=== PATIENT | male | born 1980 | race Caucasian/White ===

== ENCOUNTER 2018-07-09 22:01 | Observation (INO) | payer MEDICAID, SELFPAY ==
[2018-07-09 22:03] VITALS: BP 133/77; PULSE 84; RESP 14; TEMP 36.9; O2SAT 98; BMI 28.1
--- NOTE | 2018-07-09 22:14 | ED.RN ---
brief [facility] preformed in triage. no s/s of neuro deficits. states smile is normal. pt has rhythmic motor movement of left index finger. motor strength equal bilat. no aphagia or slurred speech. all answers and commands appropriate. bharti kinney, rn [id number]
--- NOTE | 2018-07-09 22:23 | CT_ITS ---
STUDY: CTA OF THE BRAIN REASON FOR EXAM: Male, 37 years old. Dizziness, confusion with headache RADIATION DOSAGE (If Supplied By Facility): CTDIvol = ( 30.90 ) mGy, DLP = ( 1479.76 ) mGycm TECHNIQUE: Noncontrast head CT initially performed. CT angiography was performed with a multi-detector CT scanner. Data acquisition was obtained from the skull base through the vertex following intravenous administration of 100 ml of Isovue-370. MIP images were reconstructed from the axial data set. Post-processing of the angiographic images was performed, with multiplanar reformation and 3D reconstruction. Individualized dose optimization techniques were used for this CT. COMPARISON: None. FINDINGS: Normal bilateral petrous carotid arteries. Normal right cavernous carotid artery with a normal supraclinoid bifurcation. Normal left cavernous carotid artery with a normal supraclinoid bifurcation. Normal right A1 segments of the anterior cerebral artery. Normal left A1 segments of the anterior cerebral artery. Normal intact anterior communicating artery (ACOM). Normal bilateral A2 segments of the anterior cerebral arteries. Normal right M1 and M2 segments of the middle cerebral arteries, with a normal M1 bifurcation. Normal left M1 and M2 segments of the middle cerebral arteries, with a normal M1 bifurcation. Normal right posterior communicating artery (PCOM). Normal left posterior communicating artery (PCOM). Normal bilateral vertebral arteries. Normal basilar artery with a normal basilar bifurcation. The visualized bilateral superior cerebellar (SCA) arteries are normal. Normal bilateral P1, P2 and visualized P3 segments of the posterior cerebral arteries. There is no demonstrated aneurysm of the [place]. The ventricular system is normal for age. No masses, mass effects or shift of the midline structures. No acute hemorrhage, obvious infarction or abnormal collection of extra-axial fluid. The visualized paranasal sinuses, orbits and mastoid air unremarkable. CT/CTA Head W/WO Contrast IMPRESSION: 1. Normal [place] without a demonstrated aneurysm or hemodynamically significant stenosis. 2. Normal noncontrasted head CT. Electronically Signed: Blade Kent MD at 0:25 EST , Service support ,
--- NOTE | 2018-07-09 22:23 | EKG12_ITS ---
Test Reason : DIZZINESS, NEURO SX Blood Pressure : / mmHG Vent. Rate : 084 BPM Atrial Rate : 084 BPM P-R Int : 128 ms QRS Dur : 112 ms QT Int : 360 ms P-R-T Axes : 057 078 055 degrees QTc Int : 425 ms Normal sinus rhythm Normal ECG Confirmed by MIKE VERGARA, ELLIS ([id number]), writer editor JESU SCHERER ([id number]) on 07/11/2018 1:53:11 PM Referred By: TONY Confirmed By:ELLIS MCKEON MD
--- NOTE | 2018-07-09 22:23 | CT_ITS ---
STUDY: CTA NECK WITH CONTRAST REASON FOR EXAM: Male, 37 years old. Dizziness, confusion with headache RADIATION DOSAGE (If Supplied By Facility): CTDIvol = ( 30.90 ) mGy, DLP = ( 1476.76 ) mGycm TECHNIQUE: CT angiography with multi-detector data acquisition was performed from the aortic arch to the skull base following intravenous administration of 100ML ml of Isovue 370 contrast. MIP images were reconstructed from the axial data set. Post-processing of the angiographic images was performed, with multiplanar reformation and 3D reconstruction. Individualized dose optimization techniques were used for this CT. COMPARISON: None. FINDINGS: AORTIC ARCH: There is a bovine origin of the great vessels arising from the aortic arch with a common origin of the brachiocephalic and left common carotid artery. Normal origin of the left subclavian artery. Normal origins of the brachiocephalic, left common carotid, and left subclavian arteries. RIGHT CAROTID ARTERIES: Normal right common carotid artery (CCA). There is mild atherosclerotic plaque formation with minimal narrowing of the right carotid bulb. Normal origin of the right internal carotid (ICA) artery without a hemodynamically significant stenosis. Normal visualized cervical portion of the right internal carotid artery. Normal origin of the right external carotid artery (ECA). LEFT CAROTID ARTERIES: Normal left common carotid artery (CCA). There is minimal atherosclerotic plaque formation without complete narrowing of the left carotid bulb. Normal origin of the left internal carotid (ICA) artery without a hemodynamically significant stenosis. There is atherosclerotic tortuous elongation of the cervical portion of the left internal carotid artery. Normal origin of the left external carotid artery (ECA). VERTEBRAL ARTERIES: Normal bilateral vertebral arteries. CT/CTA Neck W/WO Contrast IMPRESSION: 1. No hemodynamically significant carotid stenosis. No carotid dissection or aneurysm. Bilateral vertebral arteries are patent. 2. Minimal bilateral carotid bulb atherosclerosis. Electronically Signed: Blade Kent MD at 0:22 EST , Service support ,
[2018-07-09 22:50] VITALS: BP 159/98; PULSE 87; RESP 10; O2SAT 97
[2018-07-09 22:58] LABS: Absolute Lymphocyte Count 1.04 X10^3/ul (0.83-4.51); Basophil# 0.04 X10^3/uL; Basophil% 0.4 % (0-1); Eosinophil# 0.06 X10^3/uL; Eosinophils% 0.6 % (0-5); Hemoglobin 16.4 g/dl (13.0-16.5); Lymphocyte # 1.04 X10^3/ul (4.0); Lymphocyte % 10.8 % (19-41); Mean Corp Hgb Conc 35.7 g/gl (32-36); Mean Corpuscular Hgb 29.7 pg (27.0-32.0); Mean Corpuscular Volume 83.2 fL (80-94); Mean Platelet Vol. 9.5 fl (6.2-12.0); Monocyte# 0.46 X10^3/uL; Monocyte% 4.8 % (0-10); Neutrophil % 83.3 % (47-70); POSITIVE COUNT NO; POSITIVE DIFFERENTIAL NO; POSITIVE MORPHOLOGY NO; Platelet Count 245 K/mm3 (150-450); RBC Distribution Width CV 12.2 % (11.6-14.6); RBC Distribution Width SD 37.1 fl (35.1-43.9); Red Blood Count 5.53 M/mm3 (4.6-6.2); White Blood Count 9.6 K/mm3 (4.4-11.0)
[2018-07-09 23:01] LABS: Prothrombin Time (Protime)PT. 12.9 SECONDS (11.7-14.9)
[2018-07-09 23:02] LABS: Partial Thromboplast Time 26.6 Seconds (24.1-36.2)
[2018-07-09 23:06] LABS: Bedside Glucose 123 mg/dL (70-110)
[2018-07-09 23:14] LABS: Anion Gap 8 (5-15); BUN 14 mg/dL (7-18); BUN/Creat Ratio 13.6 RATIO (10-20); Calcium,Total 9.2 mg/dL (8.5-10.1); Chloride 105 mmol/L (98-107); Creatinine, Serum 1.03 mg/dL (0.70-1.30); EST Glomerular Filtration Rate 87 mL/min (>60); Est Glom Filt Rate - Afr Amer 105 mL/min (>60); Estimated Creatinine Clearance 95.92 ml/min; Glucose 119 mg/dL (74-106); Potassium 3.9 mmol/L (3.5-5.1); Sodium Level 142 mmol/L (136-145)
[2018-07-10] VITALS (12 sets, daily range): BP systolic 105–135; BP diastolic 60–92; PULSE 60–102; RESP 16–18; TEMP 36.6–37; O2SAT 95–98; BMI 24.9
--- NOTE | 2018-07-10 00:36 | ED.DCSUM_ITS ---
- ER Visit Summary Date of Service: 07/10/18 Chief Complaint: Vertigo History of Present Illness: The patient is a 37 M presenting for evaluation secondary to vertigo. Patient states recently he was diagnosed as having vertigo by his primary care physician. Patient states that this is a room spinning type sensation that typically is worsened by changes in position. Patient reports that this evening he had an episode that started just while he was sitting still on the couch. He apparently got up to try to go to the bathroom, and suffered a fall. He is unsure if he lost his balance, passed out, or really how he got on the floor at all and has no recollection on how he got to the floor. He denies any pain. Apparently when he was found on the floor he was having significant twitching of his left arm. Patient denies any visual changes numbness weakness nausea or vomiting. He denies any headache or neck pain or recent manipulations in the neck or head or neck trauma. Patient states that his dizziness is continuous but better when he is still. Is also been associated with some mild photophobia. Also endorses some mild jaw pain associated with this. Review of systems otherwise negative. Physical Examination: Vital signs are within normal limits, patient is afebrile. General: Patient is well-nourished well-developed and in no acute distress. Head: Normocephalic, atraumatic Eyes: Pupils equal round and reactive bilaterally, extra occular motion intact bialterally no evidence of resting or inducible nystagmus ENT: Moist mucous membranes Neck: Supple, no lymphadenopathy, no JVD, no meningismus, no carotid bruits CVS: Heart regular rate and rhythm, no murmurs, rubs or gallops, radial pulses 2+ bilaterally Resp: Respirations nondistressed, lung sounds clear bilaterally Abdomen: Soft, nontender, nondistended, no palpable masses, normal bowel sounds Back: Nontender Extremities: Nontender, atraumatic, active full range of motion, no peripheral edema Skin: warm, no rashes, no petechia Neuro: Alert and oriented x 4, CN 2-12 intact, no lateralizing neurological defecits, resting tremor of the left hand that appears like a pill-rolling tremor that disappears with intention. Normal cerebellar testing. Psyc: Normal affect Test Results: CT angiogram of the head and cervical spine are negative. EKG sinus rate [address] segments normal T waves normal intervals. CBC chemistry troponin are negative. Emergency Department Course and Treatment: Patient presented with vertigo that was also associated with a tremor of the left arm. This was concerning for the possibility of dissection versus seizure versus other intracranial abnormalities a workup was obtained and was found to be negative. Patient had some improvement of his tremor in the emergency department but still continues to have it. I was able to elicit additional history that the patient occasionally when he is having these vertiginous episodes will yell things that do not make sense. I am concerned for the possibility of partial seizures. Patient will be admitted for neurologic consultation and further workup. Disposition: Admission Impression: 1. Vertigo 2. Seizure This note was generated with [employer] dictation software. It may contain incorrect words, spelling, and punctuation that were not noted in review of the chart prior to signing ED Disposition - Plan for ED Patient: Chief Complaint: Neuro S/Sx Referrals: [facility] Doctor,Out of [Primary Care Provider] -
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
[2018-07-10 05:58] LABS: Absolute Lymphocyte Count 2.24 X10^3/ul (0.83-4.51); Absolute Neutrophil Count 6.5 X10^3/uL (2.0-7.7); Basophil# 0.04 X10^3/uL; Basophil% 0.4 % (0-1); Eosinophil# 0.35 X10^3/uL; Eosinophils% 3.5 % (0-5); Hematocrit 44.6 % (40-54); Hemoglobin 16.1 g/dl (13.0-16.5); Lymphocyte # 2.24 X10^3/ul (4.0); Lymphocyte % 22.7 % (19-41); Mean Corp Hgb Conc 36.1 g/gl (32-36); Mean Corpuscular Hgb 29.8 pg (27.0-32.0); Mean Corpuscular Volume 82.4 fL (80-94); Mean Platelet Vol. 10.2 fl (6.2-12.0); Monocyte# 0.76 X10^3/uL; Monocyte% 7.7 % (0-10); Neutrophil # 6.46 X10^3/uL (2.7-7.7); Neutrophil % 65.5 % (47-70); Platelet Count 278 K/mm3 (150-450); RBC Distribution Width CV 12.4 % (11.6-14.6); RBC Distribution Width SD 37.3 fl (35.1-43.9); Red Blood Count 5.41 M/mm3 (4.6-6.2); White Blood Count 9.9 K/mm3 (4.4-11.0)
[2018-07-10 05:59] LABS: POSITIVE COUNT NO; POSITIVE DIFFERENTIAL NO; POSITIVE MORPHOLOGY NO
[2018-07-10 06:32] LABS: Anion Gap 9 (5-15); BUN 12 mg/dL (7-18); BUN/Creat Ratio 13.1 RATIO (10-20); Calcium,Total 8.8 mg/dL (8.5-10.1); Chloride 108 mmol/L (98-107); Creatinine, Serum 0.91 mg/dL (0.70-1.30); EST Glomerular Filtration Rate 99 mL/min (>60); Est Glom Filt Rate - Afr Amer 120 mL/min (>60); Estimated Creatinine Clearance 123.17 ml/min; Glucose 101 mg/dL (74-106); Potassium 3.8 mmol/L (3.5-5.1); Sodium Level 142 mmol/L (136-145)
[2018-07-10 06:39] LABS: Thyroid Stim Hormone (TSH) 1.52 uIU/mL (0.358-3.74)
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
--- NOTE | 2018-07-10 12:55 | PN_ITS ---
<Francesca Diallo - Last Filed: 07/10/18 12:55> Patient Problems: Active and Suspected Problems Vertigo (Acute) Subjective: Patient seen and examined. Denies further symptoms overnight. No further dizziness, hand tapping at this time. Patient reports symptoms of dizziness have been ongoing for the past few months. - Physical Exam General: Alert, Oriented x3, Cooperative HEENT: Atraumatic, PERRLA, EOMI, Normocephalic Neck: Supple, No JVD, Negative Carotid Bruits Lungs: Clear to auscultation, Normal air movement Cardiovascular: Regular rate, Regular Rhythm, Normal S1, Normal S2, No murmurs Abdomen: Bowel Sounds Present, Soft, Non Tender, Non-Distended Extremities: No clubbing, No cyanosis, No edema, Capillary Refill Less than 3 Seconds Skin: No rashes, No breakdown Musculoskeletal: No Tenderness to Palpation of Joints or Extremities Neurological: Cranial nerves II-XII grossly intact, Neuro grossly intact Psych/Mental Status: Normal Affect, Appropriate Vital Signs Temp Pulse Resp BP Pulse Ox 98.6 F 102 H 18 105/60 95 07/10/18 09:17 07/10/18 10:59 07/10/18 09:17 07/10/18 09:17 07/10/18 09:17 Oxygen Delivery Method Room Air Weight: 183 lb 13.848 oz Body Mass Index (BMI) 24.9 Finger Stick Blood Glucose 123 Intake and Output for Last 24 Hours 07/08/18 07/09/18 07/10/18 23:59 23:59 23:59 Intake Total 240 / 240 Balance 240 / 240 Laboratory Tests Past 24 Hrs 07/09/18 07/09/18 07/09/18 22:45 22:45 22:45 WBC 9.6 RBC 5.53 Hgb 16.4 Hct 46.0 MCV 83.2 MCH 29.7 MCHC 35.7 RDW 12.2 RDW Differential 37.1 Plt Count 245 MPV 9.5 Immature Gran % (Auto) 0.100 Neut % (Auto) 83.3 H Lymph % (Auto) 10.8 L [place] % (Auto) 4.8 Eos % (Auto) 0.6 Baso % (Auto) 0.4 Absolute Neuts (auto) 8.0 H Absolute Lymphs (auto) 1.04 Total Counted Not Reportable PT 12.9 INR 1.0 APTT 26.6 Sodium 142 Potassium 3.9 Chloride 105 Carbon Dioxide 29.0 Anion Gap 8 BUN 14 Creatinine 1.03 Estim Creat Clear Calc 95.92 Est GFR (MDRD) Af Amer 105 Est GFR (MDRD) Non-Af 87 BUN/Creatinine Ratio 13.6 Glucose 119 H Calcium 9.2 Troponin I < 0.015 Vitamin B12 TSH 07/10/18 07/10/18 07/10/18 04:55 04:55 04:55 WBC 9.9 RBC 5.41 Hgb 16.1 Hct 44.6 MCV 82.4 MCH 29.8 MCHC 36.1 H RDW 12.4 RDW Differential 37.3 Plt Count 278 MPV 10.2 Immature Gran % (Auto) 0.200 Neut % (Auto) 65.5 Lymph % (Auto) 22.7 [place] % (Auto) 7.7 Eos % (Auto) 3.5 Baso % (Auto) 0.4 Absolute Neuts (auto) 6.5 Absolute Lymphs (auto) 2.24 Total Counted Not Reportable PT INR APTT Sodium 142 Potassium 3.8 Chloride 108 H Carbon Dioxide 25.0 Anion Gap 9 BUN 12 Creatinine 0.91 Estim Creat Clear Calc 123.17 Est GFR (MDRD) Af Amer 120 Est GFR (MDRD) Non-Af 99 BUN/Creatinine Ratio 13.1 Glucose 101 Calcium 8.8 Troponin I Vitamin B12 TSH 1.52 07/10/18 04:55 WBC RBC Hgb Hct MCV MCH MCHC RDW RDW Differential Plt Count MPV Immature Gran % (Auto) Neut % (Auto) Lymph % (Auto) [place] % (Auto) Eos % (Auto) Baso % (Auto) Absolute Neuts (auto) Absolute Lymphs (auto) Total Counted PT INR APTT Sodium Potassium Chloride Carbon Dioxide Anion Gap BUN Creatinine Estim Creat Clear Calc Est GFR (MDRD) Af Amer Est GFR (MDRD) Non-Af BUN/Creatinine Ratio Glucose Calcium Troponin I Vitamin B12 Pending TSH POC Glucose 07/09/18 23:01 POC Glucose 123 H Medical Necessity - Tobacco Use Smoking Status: Never smoker Assessment/Plan All Active Problems Vertigo (Acute) 1. Vertigo-neurology consulted. Atypical for seizure however EEG ordered, pending. CT of head normal. CTA of neck with no significant carotid stenosis. MRI of brain pending. PRN meclizine. Neurology suspected vertigo confounded by depression/PTSD, possible conversion disorder. Further recommendations pending EEG and MRI of brain. 2. PTSD/depression-patient previously on Effexor which he states he took 2-3 weeks and discontinued on his own. Recommend outpatient follow-up with continued use of SSRI. DVT prophylaxis-Not indicated, low risk. This patient was seen by JEFF Johnston under the supervision of Dr. Wen. <Urvashi Wen E - Last Filed: 07/10/18 13:02> - Physical Exam Vital Signs Temp Pulse Resp BP Pulse Ox 98.6 F 102 H 18 105/60 95 07/10/18 09:17 07/10/18 10:59 07/10/18 09:17 07/10/18 09:17 07/10/18 09:17 Oxygen Delivery Method Room Air Weight: 183 lb 13.848 oz Body Mass Index (BMI) 24.9 Finger Stick Blood Glucose 123 Intake and Output for Last 24 Hours 07/08/18 07/09/18 07/10/18 23:59 23:59 23:59 Intake Total 240 / 240 Balance 240 / 240 Laboratory Tests Past 24 Hrs 07/09/18 07/09/18 07/09/18 22:45 22:45 22:45 WBC 9.6 RBC 5.53 Hgb 16.4 Hct 46.0 MCV 83.2 MCH 29.7 MCHC 35.7 RDW 12.2 RDW Differential 37.1 Plt Count 245 MPV 9.5 Immature Gran % (Auto) 0.100 Neut % (Auto) 83.3 H Lymph % (Auto) 10.8 L [place] % (Auto) 4.8 Eos % (Auto) 0.6 Baso % (Auto) 0.4 Absolute Neuts (auto) 8.0 H Absolute Lymphs (auto) 1.04 Total Counted Not Reportable PT 12.9 INR 1.0 APTT 26.6 Sodium 142 Potassium 3.9 Chloride 105 Carbon Dioxide 29.0 Anion Gap 8 BUN 14 Creatinine 1.03 Estim Creat Clear Calc 95.92 Est GFR (MDRD) Af Amer 105 Est GFR (MDRD) Non-Af 87 BUN/Creatinine Ratio 13.6 Glucose 119 H Calcium 9.2 Troponin I < 0.015 Vitamin B12 TSH 12/04/1907/10/18 07/10/18 04:55 04:55 04:55 WBC 9.9 RBC 5.41 Hgb 16.1 Hct 44.6 MCV 82.4 MCH 29.8 MCHC 36.1 H RDW 12.4 RDW Differential 37.3 Plt Count 278 MPV 10.2 Immature Gran % (Auto) 0.200 Neut % (Auto) 65.5 Lymph % (Auto) 22.7 [place] % (Auto) 7.7 Eos % (Auto) 3.5 Baso % (Auto) 0.4 Absolute Neuts (auto) 6.5 Absolute Lymphs (auto) 2.24 Total Counted Not Reportable PT INR APTT Sodium 142 Potassium 3.8 Chloride 108 H Carbon Dioxide 25.0 Anion Gap 9 BUN 12 Creatinine 0.91 Estim Creat Clear Calc 123.17 Est GFR (MDRD) Af Amer 120 Est GFR (MDRD) Non-Af 99 BUN/Creatinine Ratio 13.1 Glucose 101 Calcium 8.8 Troponin I Vitamin B12 TSH 1.52 07/10/18 04:55 WBC RBC Hgb Hct MCV MCH MCHC RDW RDW Differential Plt Count MPV Immature Gran % (Auto) Neut % (Auto) Lymph % (Auto) [place] % (Auto) Eos % (Auto) Baso % (Auto) Absolute Neuts (auto) Absolute Lymphs (auto) Total Counted PT INR APTT Sodium Potassium Chloride Carbon Dioxide Anion Gap BUN Creatinine Estim Creat Clear Calc Est GFR (MDRD) Af Amer Est GFR (MDRD) Non-Af BUN/Creatinine Ratio Glucose Calcium Troponin I Vitamin B12 Pending TSH POC Glucose 07/09/18 23:01 POC Glucose 123 H Assessment/Plan Hospitalist note: I am seeing this patient in conjunction with Francesca Diallo. I independently seen and examined the patient. Progress note above, laboratory data and imaging studies reviewed and I concur with the above treatment and workup plan. Patient was admitted for episodes of dizziness with abnormal movement of the left upper extremity that has been going on for couple of months. It is not clear if his symptoms are due to vertigo. Today, he had no dizzy spells. His vital signs are stable. - Physical Exam General: Alert, Oriented x3, Cooperative, No apparent distress. HEENT: Atraumatic, PERRLA, EOMI. Neck: Supple, No JVD, Negative Carotid Bruits, Trachea Midline, Thyroid Normal. Lungs: Clear to auscultation, Normal air movement, No rhonchi, No wheeze, No rales. Cardiovascular: Regular rate, Regular Rhythm, Normal S1, Normal S2, PMI Normal. Abdomen: Bowel Sounds Present, Soft, Non Tender, Non-Distended, No Hepato- splenomegaly. Extremities: No clubbing, No cyanosis, No edema Skin: No rashes, No breakdown Neurological: Neuro grossly intact Vital Signs are stable. Assessment and plan: #1 dizzy spells/questionable vertigo: With no obvious history of seizure. CTA of the head and neck revealed no acute hemorrhage or infarction, no evidence of acute hemodynamically significant vascular disease or stenosis. Neurology consulted, recommended MRI brain and EEG. His routine blood work was unremarkable. Troponin was negative. TSH was normal. EKG revealed normal sinus rhythm without evidence of acute ischemic changes or cardiac arrhythmias. His symptoms could be compounded by history of depression and PTSD, possible conversion disorder. Plan for MRI brain and EEG. #2 other chronic medical problems: Stable, continue current medications as above. This note was generated with [employer] dictation software. It may contain incorrect words, spelling, and punctuation that were not noted in checking the note before signing. Code Visit OBSV E&M: 94083 Subsequent observation care L2
[2018-07-10] MEDS: Ibuprofen 400 MG Tablet PO (17:11)
[2018-07-11 02:56] VITALS: BP 114/76; PULSE 66; RESP 16; TEMP 36.8; O2SAT 98
[2018-07-11 03:00] VITALS: PULSE 60
[2018-07-11 07:05] VITALS: PULSE 60
[2018-07-11 09:42] LABS: Vitamin B12 424 pg/mL (211-911)
[2018-07-11 09:54] VITALS: BP 134/76; PULSE 80; RESP 18; TEMP 36.8; O2SAT 98
--- NOTE | 2018-07-11 11:10 | EEG ---
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 He states that he had some right hand tapping with a spell 2 days of earlier. Background activity is 9 Hz symmetrically in the posterior leads which attenuates with eye opening. There is also superimposed beta range activity which is likely medication effect. Hyperventilation is performed for 4 minutes with good effort with no lateralizing or epileptiform changes in the post hyperventilatory phase was unremarkable. Photic stimulation demonstrated a normal symmetric driving response in the posterior leads and EKG is normal sinus rhythm throughout the recording. Impression: There is a beta range activity which is likely medication effect otherwise this is a normal electroencephalogram.
--- NOTE | 2018-07-11 11:23 | MRI_ITS ---
STUDY: MRI BRAIN WITH AND WITHOUT CONTRAST REASON FOR EXAM: Male, 37 years old. VERTIGO. Dizziness, confusion with headache TECHNIQUE: Standardized multiplanar fat and water weighted pulse sequences were obtained. 8 ml of Gadavist contrast material was administered intravenously for the contrast portion of the examination. COMPARISON: None. FINDINGS: Normal size of the ventricles and extra-axial spaces for the patient's age. Normal white matter tracts of the supratentorial brain. Normal bilateral basal ganglia. Normal thalami. There is no extra-axial fluid accumulation. Normal flow voids within the major intracranial circulation suggesting patency by spin echo criteria. Normal venous enhancement. There is no enhancing intra-axial or extra-axial abnormality. Normal sella turcica, pituitary gland, infundibular stalk, optic chiasm and hypothalamus. Normal tectal plate and pineal gland. Normal midbrain, stephania and medulla. Normal cerebellum. Normal basal cisterns. Normal bilateral temporal bones. Normal bilateral internal auditory canals. No demonstrated orbital abnormality, within the constraints of a routine brain study. Normal visualized paranasal sinuses. Normal calvarium and skull base. Normal visualized soft tissue structures. Normal visualized upper cervical spine. MRI/Brain W/WO Contrast IMPRESSION: Normal unenhanced and enhanced MRI of the brain. Electronically Signed: Anni Christina MD at 12:00 EST Tel , Service support ,
[2018-07-11 11:31] VITALS: PULSE 94
--- NOTE | 2018-07-11 12:36 | PCM.DC ---
- Discharge Diagnoses Current Active Problems: Current Active and Chronic Problems Vertigo (Acute) PTSD (post-traumatic stress disorder) (Chronic) You will use the following diet at home:: No restrictions Discharge Activity: Return to Normal Activity Call your doctor if you observe: Numbness or Tingling, Shortness of breath, Dizziness, Fainting spells, Chest pain Allergies/Adverse Reactions: Allergies No Known Allergies Allergy (Verified 07/09/18 22:07) Medications to take at Discharge Dimenhydrinate 50 mg PO 4X/DAY PRN PRN 07/09/18 Ondansetron [Zofran Odt] 4 mg PO 4X/DAY PRN PRN 07/09/18 Primary Care Physician: Saul Padilla,Out of [Primary Care Provider] - Please follow up with your Primary Care Physician in: 1 Week Test Results: Test results from this visit will be discussed in further detail at your follow-up appointment, if applicable. Please Follow Up With: [facility] - Recommend referral per patient request When: 1 Week Proposed Discharge Date: 07/11/18
--- NOTE | 2018-07-11 12:39 | DCINST_ITS ---
- Discharge Diagnoses Current Active Problems: Current Active and Chronic Problems Vertigo (Acute) PTSD (post-traumatic stress disorder) (Chronic) You will use the following diet at home:: No restrictions Discharge Activity: Return to Normal Activity Call your doctor if you observe: Numbness or Tingling, Shortness of breath, Dizziness, Fainting spells, Chest pain Allergies/Adverse Reactions: Allergies No Known Allergies Allergy (Verified 07/09/18 22:07) Medications to take at Discharge Dimenhydrinate 50 mg PO 4X/DAY PRN PRN 07/09/18 Ondansetron [Zofran Odt] 4 mg PO 4X/DAY PRN PRN 07/09/18 Primary Care Physician: Saul Padilla,Out of [Primary Care Provider] - Please follow up with your Primary Care Physician in: 1 Week Test Results: Test results from this visit will be discussed in further detail at your follow- up appointment, if applicable. Please Follow Up With: [facility] - Recommend referral per patient request When: 1 Week Proposed Discharge Date: 07/11/18
--- NOTE | 2018-07-11 12:39 | PCM.DC.SUM ---
<Francesca Diallo - Last Filed: 07/11/18 12:47> Discharge Date and Diagnosis Date of Admission: 07/10/18 Date of Discharge: 07/11/18 - Primary Discharge Diagnosis Active and Suspected Problems 1. Vertigo 2. PTSD/Depression - Secondary Discharge Diagnosis Chronic Problems PTSD (post-traumatic stress disorder) (Chronic) Hospital Course and Treatment Imaging Results: Diagnostic Data Head CTA 07/09/18 22:23 IMPRESSION: 1. Normal [place] without a demonstrated aneurysm or hemodynamically significant stenosis. 2. Normal noncontrasted head CT. Electronically Signed: Blade Kent MD at 0:25 EST , Service support , Neck CTA 07/09/18 22:23 IMPRESSION: 1. No hemodynamically significant carotid stenosis. No carotid dissection or aneurysm. Bilateral vertebral arteries are patent. 2. Minimal bilateral carotid bulb atherosclerosis. Electronically Signed: Blade Kent MD at 0:22 EST , Service support , Brain MRI 07/11/18 11:23 IMPRESSION: Normal unenhanced and enhanced MRI of the brain. Electronically Signed: Anni Christina MD at 12:00 EST Tel , Service support , Dr. Garrison- Neurology Operations: None Procedures: Electroencephalogram Summary of Care Provided: The patient is a 37 year old M admitted 07/10/18 due to vertigo. 1. Ongoing Vertigo-neurology consulted. EEG normal. CT of head normal. CTA of neck with no significant carotid stenosis. MRI of brain normal. Neurology suspected vertigo confounded by depression/PTSD, possible conversion disorder. Outpatient follow-up with primary care physician and psychiatrist/counseling for mental health evaluation and treatment. 2. PTSD/depression-patient previously on Effexor which he states he took 2-3 weeks and discontinued on his own. Recommend outpatient follow-up with continued use of SSRI. Patient requesting to be referred to [facility] for treatment of PTSD/depression. Recommend referral by primary care physician. Encouraged patient to call himself for appointment as well. General: Alert, Oriented x3, Cooperative HEENT: Atraumatic, PERRLA, EOMI, Normocephalic Neck: Supple, No JVD, Negative Carotid Bruits Lungs: Clear to auscultation, Normal air movement Cardiovascular: Regular rate, Regular Rhythm, Normal S1, Normal S2, No murmurs Abdomen: Bowel Sounds Present, Soft, Non Tender, Non-Distended Extremities: No clubbing, No cyanosis, No edema, Capillary Refill Less than 3 Seconds Skin: No rashes, No breakdown Musculoskeletal: No Tenderness to Palpation of Joints or Extremities Neurological: Cranial nerves II-XII grossly intact, Neuro grossly intact Psych/Mental Status: Normal Affect, Appropriate Patient seen and examined prior to discharge. Physical assessment as noted above. Patient is stable for discharge with follow up recommendations as noted above. This patient was seen by JEFF Johnston under the supervision of Dr. Wen. - Physical Exam Vital Signs Temp Pulse Resp BP Pulse Ox 98.2 F 80 18 134/76 H 98 07/11/18 09:54 07/11/18 09:54 07/11/18 09:54 07/11/18 09:54 07/11/18 09:54 Oxygen Delivery Method Room Air Weight: 183 lb 13.848 oz Body Mass Index (BMI) 24.9 Finger Stick Blood Glucose 123 Intake and Output for Last 24 Hours 07/09/18 07/10/18 07/11/18 23:59 23:59 23:59 Intake Total 960 / 960 240 / 240 Output Total 350 / 350 Balance 610 / 610 240 / 240 Laboratory Tests Past 24 Hrs 07/10/18 04:55 Vitamin B12 424 Discharge Diet: No Restrictions Discharge Activity: Return to Normal Activity Call your doctor if you observe: Numbness or Tingling, Shortness of breath, Dizziness, Fainting spells, Chest pain Home Medications: Medications to take at Discharge Dimenhydrinate 50 mg PO 4X/DAY PRN PRN 07/09/18 Ondansetron [Zofran Odt] 4 mg PO 4X/DAY PRN PRN 07/09/18 Primary Care Physician: aSul Padilla,Out of [Primary Care Provider] - Please follow up with your Primary Care Physician in: 1 Week Please Follow Up With: [facility] - Recommend referral per patient request When: 1 Week Disposition: Home Minutes spent on discharge:: 35 Patient Condition:: Stable Medical Necessity - Tobacco Use Smoking Status: Never smoker Meaningful Use Info Meaningful Use Diagnoses (Choose all that apply): None applicable <Urvashi Wen E - Last Filed: 07/11/18 12:59> Discharge Date and Diagnosis - Secondary Discharge Diagnosis Chronic Problems PTSD (post-traumatic stress disorder) (Chronic) Hospital Course and Treatment Imaging Results: 07/11/18 11:23 Brain W/WO Contrast [MRI] Urgent Summary of Care Provided: Hospitalist note: Discharge summary above reviewed and I agree with above discharge plan. Patient was admitted for episodes of dizziness and abnormal movement of the left upper extremity that has been going on for couple of months. Stroke workup was unremarkable and acute stroke ruled out. CTA of the head and neck revealed no acute hemorrhage or infarction, no evidence of hemodynamically significant vascular disease or stenosis. Neurology consulted and recommended MRI brain and EEG. MRI brain done and it was normal without evidence of acute stroke. Electroencephalogram was normal without evidence of epileptiform discharges. His symptoms attributed to possible vertigo versus psychiatric issues including PTSD and depression. His routine blood work was unremarkable. His TSH and B12 were normal. EKG was unremarkable. Vital signs remain stable throughout admission. Patient discharged home in a stable medical condition, recommended follow-up PCP in 1 week, follow-up with [facility] as outpatient in 1 week. - Physical Exam General: Alert, Oriented x3, Cooperative, No apparent distress. HEENT: Atraumatic, PERRLA, EOMI. Neck: Supple, No JVD, Negative Carotid Bruits, Trachea Midline, Thyroid Normal. Lungs: Clear to auscultation, Normal air movement, No rhonchi, No wheeze, No rales. Cardiovascular: Regular rate, Regular Rhythm, Normal S1, Normal S2, PMI Normal. Abdomen: Bowel Sounds Present, Soft, Non Tender, Non-Distended, No Hepato-splenomegaly. Extremities: No clubbing, No cyanosis, No edema Skin: No rashes, No breakdown Neurological: Neuro grossly intact Vital Signs are stable. This note was generated with [employer] software. It may contain incorrect words, spelling, and punctuation that were not noted in checking the note before signing. - Physical Exam Vital Signs Temp Pulse Resp BP Pulse Ox 98.2 F 80 18 134/76 H 98 07/11/18 09:54 07/11/18 09:54 07/11/18 09:54 07/11/18 09:54 07/11/18 09:54 Oxygen Delivery Method Room Air Weight: 183 lb 13.848 oz Body Mass Index (BMI) 24.9 Finger Stick Blood Glucose 123 Intake and Output for Last 24 Hours 07/09/18 07/10/18 07/11/18 23:59 23:59 23:59 Intake Total 960 / 960 240 / 240 Output Total 350 / 350 Balance 610 / 610 240 / 240 Laboratory Tests Past 24 Hrs 07/10/18 04:55 Vitamin B12 424 Disposition: Home Minutes spent on discharge:: 27 Patient Condition:: Stable Meaningful Use Info Meaningful Use Diagnoses (Choose all that apply): None applicable Code Visit OBSV E&M: 45923 Observation care discharge
--- NOTE | 2018-07-11 12:47 | DS.PCM_ITS ---
<Francesca Diallo - Last Filed: 07/11/18 12:47> Discharge Date and Diagnosis Date of Admission: 07/10/18 Date of Discharge: 07/11/18 - Primary Discharge Diagnosis Active and Suspected Problems 1. Vertigo 2. PTSD/Depression - Secondary Discharge Diagnosis Chronic Problems PTSD (post-traumatic stress disorder) (Chronic) Hospital Course and Treatment Imaging Results: Diagnostic Data Head CTA 07/09/18 22:23 IMPRESSION: 1. Normal stebbins of Sidhu without a demonstrated aneurysm or hemodynamically significant stenosis. 2. Normal noncontrasted head CT. Electronically Signed: Blade Kent MD at 0:25 EST , Service support , Neck CTA 07/09/18 22:23 IMPRESSION: 1. No hemodynamically significant carotid stenosis. No carotid dissection or aneurysm. Bilateral vertebral arteries are patent. 2. Minimal bilateral carotid bulb atherosclerosis. Electronically Signed: Blade Kent MD at 0:22 EST , Service support , Brain MRI 07/11/18 11:23 IMPRESSION: Normal unenhanced and enhanced MRI of the brain. Electronically Signed: Anni Christina MD at 12:00 EST Tel , Service support , Dr. Garrison- Neurology Operations: None Procedures: Electroencephalogram Summary of Care Provided: The patient is a 37 year old M admitted 07/10/18 due to vertigo. 1. Ongoing Vertigo-neurology consulted. EEG normal. CT of head normal. CTA of neck with no significant carotid stenosis. MRI of brain normal. Neurology suspected vertigo confounded by depression/PTSD, possible conversion disorder. Outpatient follow-up with primary care physician and psychiatrist/counseling for mental health evaluation and treatment. 2. PTSD/depression-patient previously on Effexor which he states he took 2-3 weeks and discontinued on his own. Recommend outpatient follow-up with continued use of SSRI. Patient requesting to be referred to [facility] for treatment of PTSD/depression. Recommend referral by primary care physician. Encouraged patient to call himself for appointment as well. General: Alert, Oriented x3, Cooperative HEENT: Atraumatic, PERRLA, EOMI, Normocephalic Neck: Supple, No JVD, Negative Carotid Bruits Lungs: Clear to auscultation, Normal air movement Cardiovascular: Regular rate, Regular Rhythm, Normal S1, Normal S2, No murmurs Abdomen: Bowel Sounds Present, Soft, Non Tender, Non-Distended Extremities: No clubbing, No cyanosis, No edema, Capillary Refill Less than 3 Seconds Skin: No rashes, No breakdown Musculoskeletal: No Tenderness to Palpation of Joints or Extremities Neurological: Cranial nerves II-XII grossly intact, Neuro grossly intact Psych/Mental Status: Normal Affect, Appropriate Patient seen and examined prior to discharge. Physical assessment as noted above. Patient is stable for discharge with follow up recommendations as noted above. This patient was seen by JEFF Johnston under the supervision of Dr. Wen. - Physical Exam Vital Signs Temp Pulse Resp BP Pulse Ox 98.2 F 80 18 134/76 H 98 07/11/18 09:54 07/11/18 09:54 07/11/18 09:54 07/11/18 09:54 07/11/18 09:54 Oxygen Delivery Method Room Air Weight: 183 lb 13.848 oz Body Mass Index (BMI) 24.9 Finger Stick Blood Glucose 123 Intake and Output for Last 24 Hours 07/09/18 07/10/18 07/11/18 23:59 23:59 23:59 Intake Total 960 / 960 240 / 240 Output Total 350 / 350 Balance 610 / 610 240 / 240 Laboratory Tests Past 24 Hrs 07/10/18 04:55 Vitamin B12 424 Discharge Diet: No Restrictions Discharge Activity: Return to Normal Activity Call your doctor if you observe: Numbness or Tingling, Shortness of breath, Dizziness, Fainting spells, Chest pain Home Medications: Medications to take at Discharge Dimenhydrinate 50 mg PO 4X/DAY PRN PRN 07/09/18 Ondansetron [Zofran Odt] 4 mg PO 4X/DAY PRN PRN 07/09/18 Primary Care Physician: Saul Padilla,Out of [Primary Care Provider] - Please follow up with your Primary Care Physician in: 1 Week Please Follow Up With: [facility] - Recommend referral per patient request When: 1 Week Disposition: Home Minutes spent on discharge:: 35 Patient Condition:: Stable Medical Necessity - Tobacco Use Smoking Status: Never smoker Meaningful Use Info Meaningful Use Diagnoses (Choose all that apply): None applicable <Urvashi Wen E - Last Filed: 07/11/18 12:59> Discharge Date and Diagnosis - Secondary Discharge Diagnosis Chronic Problems PTSD (post-traumatic stress disorder) (Chronic) Hospital Course and Treatment Imaging Results: 07/11/18 11:23 Brain W/WO Contrast [MRI] Urgent Summary of Care Provided: Hospitalist note: Discharge summary above reviewed and I agree with above discharge plan. Patient was admitted for episodes of dizziness and abnormal movement of the left upper extremity that has been going on for couple of months. Stroke workup was unremarkable and acute stroke ruled out. CTA of the head and neck revealed no acute hemorrhage or infarction, no evidence of hemodynamically significant vascular disease or stenosis. Neurology consulted and recommended MRI brain and EEG. MRI brain done and it was normal without evidence of acute stroke. Electroencephalogram was normal without evidence of epileptiform discharges. His symptoms attributed to possible vertigo versus psychiatric issues including PTSD and depression. His routine blood work was unremarkable. His TSH and B12 were normal. EKG was unremarkable. Vital signs remain stable throughout admission. Patient discharged home in a stable medical condition, recommended follow-up PCP in 1 week, follow-up with [facility] as outpatient in 1 week. - Physical Exam General: Alert, Oriented x3, Cooperative, No apparent distress. HEENT: Atraumatic, PERRLA, EOMI. Neck: Supple, No JVD, Negative Carotid Bruits, Trachea Midline, Thyroid Normal. Lungs: Clear to auscultation, Normal air movement, No rhonchi, No wheeze, No r ales. Cardiovascular: Regular rate, Regular Rhythm, Normal S1, Normal S2, PMI Normal. Abdomen: Bowel Sounds Present, Soft, Non Tender, Non-Distended, No Hepato- splenomegaly. Extremities: No clubbing, No cyanosis, No edema Skin: No rashes, No breakdown Neurological: Neuro grossly intact Vital Signs are stable. This note was generated with [employer] software. It may contain incorrect words, spelling, and punctuation that were not noted in checking the note before signing. - Physical Exam Vital Signs Temp Pulse Resp BP Pulse Ox 98.2 F 80 18 134/76 H 98 07/11/18 09:54 07/11/18 09:54 07/11/18 09:54 07/11/18 09:54 07/11/18 09:54 Oxygen Delivery Method Room Air Weight: 183 lb 13.848 oz Body Mass Index (BMI) 24.9 Finger Stick Blood Glucose 123 Intake and Output for Last 24 Hours 07/09/18 07/10/18 07/11/18 23:59 23:59 23:59 Intake Total 960 / 960 240 / 240 Output Total 350 / 350 Balance 610 / 610 240 / 240 Laboratory Tests Past 24 Hrs 07/10/18 04:55 Vitamin B12 424 Disposition: Home Minutes spent on discharge:: 27 Patient Condition:: Stable Meaningful Use Info Meaningful Use Diagnoses (Choose all that apply): None applicable Code Visit OBSV E&M: 54824 Observation care discharge
== END 2018-07-11 15:10 | disposition home or self-care (01) ==
LOC: ED 22:56 → PCU 07-10 00:55
PROVIDERS: Admitting Provider Family Medicine; Emergency Provider Emergency Medicine; Visit Provider Hospitalist
DX: R42 Dizziness and giddiness (principal); F32.9 Major depressive disorder, single episode, unspecified; F43.12 Post-traumatic stress disorder, chronic; Z79.899 Other long term (current) drug therapy; R56.9 Unspecified convulsions; R68.84 Jaw pain; Z91.81 History of falling
CPT/HCPCS: 36415; 70496; 70498; 70553; 80048; 82607; 82962; 84443; 84484; 85025; 85610; 85730; 93005; 95819; 99218; 99283; A9585; Q9967; A4216; G0378